=== PATIENT | male | born 1960 | race African-American/Black ===

== ENCOUNTER 2018-09-09 15:41 | Inpatient (IN) | payer OTHER ==
[~2018-09-09] VITALS: Ht 185.4 cm; Wt 49.9 kg
[~2018-09-09 15:41] MED LIST: ACET-3161 PO; AMIT10TA6 PO; ASPI-1393 PO; CHLORTHALIDONE PO; CYCL-108 PO; INDO50CA98 PO; LISI10TA5 PO; LISINOPRIL; LURA80TA PO; METF-414 PO; OMEP20CA5 PO; PARO30TA62 PO; PHEN100C4 PO; PROT40 PO; SERT50TA12 PO; TRAM50TA3 PO; TRAZ-213 PO
[2018-09-09] MEDS ORDERED: DEXTROSE 50% WATER 50ML SYRINGE IV ONE ×2 (16:03→16:15)
[2018-09-09] MEDS ORDERED: PIPERACILLIN/TAZ 3.375G PREMIX 50 ML IV ONE (16:15)
[2018-09-09] MEDS ORDERED: DEXTROSE 10% WATER 500 ML IV ONE (16:15)
[2018-09-09] MEDS ORDERED: SODIUM CHLORIDE 0.9% 1000ML BAG (SEPSIS BOLUS) IV ONE (16:15)
[2018-09-09] MEDS ORDERED: VANCOMYCIN 1 G PREMIX 200 ML IV ONE (16:15)
[2018-09-09 16:25] LABS: HEMATOCRIT. 32.8 % (42.0-52.0); HEMOGLOBIN. 11.1 g/dL (14.0-18.0); MEAN CORPUSCULAR HEMOGLOBIN 31.1 pg (28.0-32.0); MEAN CORPUSCULAR VOLUME 92.2 fL (80.0-94.0); MEAN PLATELET VOLUME 7.9 fl (7.4-10.4); PLATELET 453 x1000/uL (130-400); RED BLOOD CELL COUNT 3.56 mill/uL (4.7-6.1); RED CELL DISTRIBUTION WIDTH 17.9 % (11.6-14.6)
[2018-09-09 16:29] LABS: CHLORIDE 95 mEq/L (98-107)
[2018-09-09 16:29] LABS: BG CARBOXYHEMOGLOBIN 0.3 % (0.5-1.5); BG DEOXYHEMOGLOBIN 3.4 % (0.0-5.0); BG FRACTION INSPIRED OXYGEN 50; BG HCO3 ACT 27.3 mmol/L (22.0-26.0); BG METHEMOGLOBIN 0.4 % (0.0-1.5); BG OXYGEN SATURATION 96.6 % (92.0-98.5); BG OXYHEMOGLOBIN 95.9 % (94.0-97.0); BG PCO2 40.6 mmHg (35.0-45.0); BG PH 7.446 (7.350-7.450); BG PO2 91.9 mmHg (75.0-100.0); BG SAMPLE SITE RIGHT BRACHIAL; BG TOTAL HEMOGLOBIN 9.3 g/dL (12.0-18.0); BG VENT MODE MASK - TRACH
[2018-09-09 16:38] LABS: PROTHROMBIN TIME 98.1 sec (9.6-11.0)
[2018-09-09 16:59] LABS: INR 10.7
[2018-09-09] MEDS ORDERED: SODIUM BICARBONATE 8.4% 1 MEQ/ML 50ML SYR IV ONE (17:30)
[2018-09-09 18:42] LABS: CLARITY URINE CLEAR (CLEAR); COLOR URINE YELLOW (YELLOW); KETONES URINE NEGATIVE (NEGATIVE); LEUKOCYTE ESTERASE URINE NEGATIVE (NEGATIVE); NITRITE URINE NEGATIVE (NEGATIVE); OCCULT BLOOD URINE TRACE (NEGATIVE); PROTEIN URINE NEGATIVE (NEGATIVE); SPECIFIC GRAVITY URINE 1.018 (1.005-1.030)
[2018-09-09 18:47] LABS: PLATELET ESTIMATE NORMAL
[2018-09-09] MEDS ORDERED: ONDANSETRON HCL 4MG/2ML INJ IV PRN (22:15)
[2018-09-09] MEDS ORDERED: ACETAMINOPHEN 650MG/20.3ML UDC GT PRN (22:15)
[2018-09-09] MEDS ORDERED: DEXTROSE 50% WATER 50ML SYRINGE IV PRN (22:15)
[2018-09-09] MEDS ORDERED: CLONIDINE 0.1MG TABLET GT PRN (22:15)
[2018-09-09] MEDS ORDERED: IPRATROPIUM/ALBUTEROL 0.5-3(2.5)MG/3ML NEB INH PRN (22:15)
[2018-09-09] MEDS ORDERED: LORAZEPAM 2MG/ML CPJ IV PRN (22:15)
[2018-09-09] MEDS ORDERED: GUAIFENESIN 200MG/10ML SUGAR FREE UDC GT PRN (22:15)
[2018-09-09] MEDS ORDERED: DIPHENHYDRAMINE 50MG/ML VIAL IV PRN (22:15)
[2018-09-09] MEDS ORDERED: DEXT 5%/0.9% NACL 1,000 ML IV SCH (22:15)
[2018-09-09] MEDS ORDERED: PHYTONADIONE 10MG/ML AMP SUBCUT NR (23:45)
[2018-09-10] VITALS (13 sets, daily range): BP systolic 107–128; BP diastolic 71–90
[2018-09-10] MEDS: BLOOD SUGAR DIAGNOSTIC STRIP TEST SCH ×4 (00:22→17:33)
[2018-09-10] MEDS: HYDROCODONE/ACETAMINOPHEN 10/325MG TABLET GT PRN ×4 (01:04→21:22)
[2018-09-10] MEDS: IPRATROPIUM/ALBUTEROL 0.5-3(2.5)MG/3ML NEB HHN SCH ×5 (02:48→20:29)
[2018-09-10 08:12] LABS: CHLORIDE 99 mEq/L (98-107)
[2018-09-10 08:13] LABS: HEMATOCRIT. 23.1 % (42.0-52.0); HEMOGLOBIN. 8.1 g/dL (14.0-18.0); MEAN CORPUSCULAR HEMOGLOBIN 31.6 pg (28.0-32.0); MEAN CORPUSCULAR VOLUME 90.4 fL (80.0-94.0); PLATELET 295 x1000/uL (130-400); RED BLOOD CELL COUNT 2.56 mill/uL (4.7-6.1); RED CELL DISTRIBUTION WIDTH 17.7 % (11.6-14.6)
[2018-09-10] MEDS: PAROXETINE HCL 10MG TABLET GT SCH (09:42)
[2018-09-10] MEDS: LEVETIRACETAM 500MG/5ML CUP GT SCH ×2 (09:42→21:21)
[2018-09-10 11:13] LABS: PLATELET ESTIMATE NORMAL
[2018-09-10 12:30] LABS: PROTHROMBIN TIME > 100.0 sec (9.6-11.0)
[2018-09-10 12:32] LABS: INR > 10.0
[2018-09-10] MEDS ORDERED: PHYTONADIONE 10MG/ML AMP SUBCUT SCH (13:30)
[2018-09-10] MEDS: FAMOTIDINE 20MG TABLET GT SCH ×2 (14:09→21:22)
[2018-09-11] VITALS (10 sets, daily range): BP systolic 113–136; BP diastolic 70–90
[2018-09-11] MEDS: IPRATROPIUM/ALBUTEROL 0.5-3(2.5)MG/3ML NEB HHN SCH ×6 (00:12→20:23)
[2018-09-11] MEDS: BLOOD SUGAR DIAGNOSTIC STRIP TEST SCH ×5 (00:25→23:26)
[2018-09-11] MEDS: HYDROCODONE/ACETAMINOPHEN 10/325MG TABLET GT PRN ×4 (03:10→22:06)
[2018-09-11 05:21] LABS: HEMOGLOBIN. 7.2 g/dL (14.0-18.0); MEAN CORPUSCULAR HEMOGLOBIN 31.7 pg (28.0-32.0); MEAN CORPUSCULAR VOLUME 90.8 fL (80.0-94.0); MEAN PLATELET VOLUME 7.8 fl (7.4-10.4); PLATELET 243 x1000/uL (130-400); RED BLOOD CELL COUNT 2.27 mill/uL (4.7-6.1); RED CELL DISTRIBUTION WIDTH 17.6 % (11.6-14.6)
[2018-09-11 06:14] LABS: INR 6.6
[2018-09-11 06:42] LABS: HEMATOCRIT. 20.7 % (42.0-52.0)
[2018-09-11] MEDS: FAMOTIDINE 20MG TABLET GT SCH ×2 (08:21→20:19)
[2018-09-11] MEDS: LEVETIRACETAM 500MG/5ML CUP GT SCH ×2 (08:26→20:19)
[2018-09-11] MEDS: PAROXETINE HCL 10MG TABLET GT SCH (08:26)
[2018-09-11 08:52] LABS: CHLORIDE 104 mEq/L (98-107)
[2018-09-11] MEDS ORDERED: POTASSIUM CHLORIDE 20MEQ/PACKET GT NR (09:00)
[2018-09-11 09:11] LABS: PHOSPHORUS 0.5 mg/dL (2.5-4.9)
[2018-09-11] MEDS ORDERED: MAGNESIUM 2 G PREMIX 50 ML IV NR (10:30)
[2018-09-11 11:48] LABS: PLATELET ESTIMATE NORMAL
[2018-09-11] MEDS ORDERED: POTASSIUM PHOS,M-BASIC-D-BASIC 30 MMOL in DEXT 5% WATER 500 ML IV NR ×2 (15:30→17:00)
[2018-09-12] VITALS (12 sets, daily range): BP systolic 111–142; BP diastolic 30–92
[2018-09-12] MEDS: HYDROCODONE/ACETAMINOPHEN 10/325MG TABLET GT PRN ×3 (05:26→20:16)
[2018-09-12] MEDS: BLOOD SUGAR DIAGNOSTIC STRIP TEST SCH ×3 (06:00→17:34)
[2018-09-12 06:35] LABS: PROTHROMBIN TIME 20.3 sec (9.6-11.0)
[2018-09-12 06:43] LABS: HEMATOCRIT. 26.7 % (42.0-52.0); HEMOGLOBIN. 9.1 g/dL (14.0-18.0); MEAN CORPUSCULAR HEMOGLOBIN 31.2 pg (28.0-32.0); MEAN PLATELET VOLUME 8.3 fl (7.4-10.4); PLATELET 217 x1000/uL (130-400); RED BLOOD CELL COUNT 2.91 mill/uL (4.7-6.1)
[2018-09-12 07:16] LABS: CHLORIDE 100 mEq/L (98-107)
[2018-09-12] MEDS: LEVETIRACETAM 500MG/5ML CUP GT SCH (08:28)
[2018-09-12] MEDS: PAROXETINE HCL 10MG TABLET GT SCH (08:28)
[2018-09-12] MEDS: IPRATROPIUM/ALBUTEROL 0.5-3(2.5)MG/3ML NEB HHN SCH ×5 (08:40→20:09)
[2018-09-12] MEDS: FAMOTIDINE 20MG TABLET GT SCH ×2 (09:08→20:17)
[2018-09-12 10:32] LABS: PLATELET ESTIMATE NORMAL
[2018-09-12] MEDS ORDERED: POTASSIUM PHOS,M-BASIC-D-BASIC 30 MMOL in DEXT 5% WATER 500 ML IV NR (11:00)
[2018-09-12] MEDS ORDERED: PHENYTOIN SODIUM 500 MG in SODIUM CHLORIDE 0.9% 50 ML IV NR (18:00)
[2018-09-12] MEDS ORDERED: PHENYTOIN 100 MG/4 ML UDC NG SCH (22:00)
== END 2018-09-12 22:08 | disposition short-term general hospital (02) | DRG 637 ==
LOC: ER 15:41 → 5EST 18:41 → EDBEDREQTM 21:43 → EDBEDREQSVC 21:43 → ENRESERV 22:16
PROVIDERS: ADMIT Internal Medicine; ATTEND Internal Medicine
DX: E11.649 Type 2 diabetes mellitus with hypoglycemia without coma (principal); G93.41 Metabolic encephalopathy; E43 Unspecified severe protein-calorie malnutrition; E87.1 Hypo-osmolality and hyponatremia; C33 Malignant neoplasm of trachea; D68.9 Coagulation defect, unspecified; Z68.1 Body mass index [BMI] 19.9 or less, adult; N17.9 Acute kidney failure, unspecified; J44.9 Chronic obstructive pulmonary disease, unspecified; E83.39 Other disorders of phosphorus metabolism; E86.0 Dehydration; G40.909 Epilepsy, unspecified, not intractable, without status epilepticus; E87.8 Other disorders of electrolyte and fluid balance, not elsewhere classified; I10 Essential (primary) hypertension; Z85.818 Personal history of malignant neoplasm of other sites of lip, oral cavity, and pharynx; Z93.1 Gastrostomy status; Z93.0 Tracheostomy status; Z79.82 Long term (current) use of aspirin; Z79.84 Long term (current) use of oral hypoglycemic drugs; Z79.899 Other long term (current) drug therapy; Z91.14 Patient's other noncompliance with medication regimen; Z86.718 Personal history of other venous thrombosis and embolism; Z87.891 Personal history of nicotine dependence; Z99.81 Dependence on supplemental oxygen
CPT/HCPCS: 36415; 36600; 71045; 80048; 80185; 82270; 82375; 82805; 82962; 83036; 83605; 83735; 83880; 84100; 84145; 84484; 93005; 94640; 96365; 99291; J1165; J1200; J2405; J2543; J3370; J3430; J3475; J3490; J7030; J7060; J7620

== ENCOUNTER 2018-09-27 07:02 | Inpatient (IN) | payer OTHER ==
[~2018-09-27] VITALS: Ht 172.7 cm; Wt 41.7 kg
[2018-09-27] VITALS (44 sets, daily range): BP systolic 59–127; BP diastolic 24–75
[2018-09-27] MEDS ORDERED: SODIUM CHLORIDE 0.9% 1,000 ML IV ONE (07:21)
[2018-09-27 07:51] LABS: HEMATOCRIT. 24.9 % (42.0-52.0); HEMOGLOBIN. 8.3 g/dL (14.0-18.0); MEAN CORPUSCULAR HEMOGLOBIN 30.8 pg (28.0-32.0); MEAN CORPUSCULAR VOLUME 92.1 fL (80.0-94.0); MEAN PLATELET VOLUME 8.1 fl (7.4-10.4); PLATELET 168 x1000/uL (130-400); RED BLOOD CELL COUNT 2.71 mill/uL (4.7-6.1); RED CELL DISTRIBUTION WIDTH 16.9 % (11.6-14.6)
[2018-09-27 07:58] LABS: CHLORIDE 101 mEq/L (98-107)
[2018-09-27 08:25] LABS: PLATELET ESTIMATE NORMAL
[2018-09-27 08:35] LABS: BG CARBOXYHEMOGLOBIN 0.3 % (0.5-1.5); BG DEOXYHEMOGLOBIN 5.3 % (0.0-5.0); BG FRACTION INSPIRED OXYGEN 60; BG HCO3 ACT 24.8 mmol/L (22.0-26.0); BG METHEMOGLOBIN 0.3 % (0.0-1.5); BG OXYGEN SATURATION 94.7 % (92.0-98.5); BG OXYHEMOGLOBIN 94.1 % (94.0-97.0); BG PCO2 35.6 mmHg (35.0-45.0); BG PO2 74.9 mmHg (75.0-100.0); BG SAMPLE SITE RIGHT BRACHIAL; BG TOTAL HEMOGLOBIN 8.6 g/dL (12.0-18.0); BG VENT MODE MASK - AEROSOL
[2018-09-27] MEDS ORDERED: AZITHROMYCIN 500 MG in DEXT 5% WATER 250 ML IV ONE (09:15)
[2018-09-27] MEDS ORDERED: VANCOMYCIN 1 G PREMIX 200 ML IV SCH (09:15)
[2018-09-27] MEDS ORDERED: PIPERACILLIN/TAZ 3.375G PREMIX 50 ML IV ONE (09:15)
[2018-09-27] MEDS ORDERED: SODIUM CHLORIDE 0.9% 1,000 ML IV SCH (11:15)
[2018-09-27] MEDS ORDERED: ACETAMINOPHEN 325MG TABLET PO PRN (11:15)
[2018-09-27] MEDS ORDERED: ONDANSETRON HCL 4MG/2ML INJ IV PRN (11:15)
[2018-09-27] MEDS ORDERED: NOREPINEPHRINE 4MG/250ML PMX 250 ML IV NR (11:15)
[2018-09-27 12:11] LABS: HEPATITIS B SURFACE ANTIGEN NEGATIVE
[2018-09-27 12:41] LABS: HEPATITIS A AB IGM NEGATIVE (NEGATIVE)
[2018-09-27] MEDS ORDERED: NOREPINEPHRINE 4 MG in DEXTROSE 5% WATER 250 ML IV PRN (13:00)
[2018-09-27] MEDS: DEXT 5%/0.45% NACL 1000ML 1,000 ML IV SCH (15:00)
[2018-09-27] MEDS ORDERED: SODIUM CHLORIDE 0.9% 500 ML IV ONE ×2 (15:00)
[2018-09-27] MEDS: MIDODRINE HCL 5MG TABLET PO SCH ×2 (15:06→21:40)
[2018-09-27] MEDS: CEFEPIME 1,000 MG in DEXTROSE 5% WATER 50 ML IV SCH (15:07)
[2018-09-27] MEDS: NOREPINEPHRINE 8 MG in DEXT 5% WATER 242 ML IV PRN ×2 (15:08→22:55)
[2018-09-27] MEDS ORDERED: IPRATROPIUM/ALBUTEROL 0.5-3(2.5)MG/3ML NEB HHN PRN (15:30)
[2018-09-27] MEDS ORDERED: ENOXAPARIN 40MG/0.4ML SYR SUBCUT SCH (16:00)
[2018-09-27] MEDS: METRONIDAZOLE 500MG TABLET PO SCH (16:00)
[2018-09-27] MEDS: HYDROCODONE/ACETAMINOPHEN 10/325MG TABLET PO PRN (16:22)
[2018-09-27] MEDS: PHENYLEPHRINE 40 MG in DEXT 5% WATER 246 ML IV PRN ×2 (18:06→23:43)
[2018-09-27 18:52] LABS: CLARITY URINE CLEAR (CLEAR); COLOR URINE YELLOW (YELLOW); KETONES URINE NEGATIVE (NEGATIVE); LEUKOCYTE ESTERASE URINE NEGATIVE (NEGATIVE); NITRITE URINE NEGATIVE (NEGATIVE); OCCULT BLOOD URINE NEGATIVE (NEGATIVE); PH URINE 7.5 (4.5-8.0); PROTEIN URINE TRACE (NEGATIVE); SPECIFIC GRAVITY URINE 1.015 (1.005-1.030); UROBILINOGEN URINE 0.2 E.U./dL (0.2-1.0)
[2018-09-27 19:02] LABS: *AMPHETAMINES SCREEN URINE NEGATIVE (NEGATIVE); *BARBITURATES SCREEN URINE NEGATIVE (NEGATIVE); *BENZODIAZEPINES SCREEN URINE NEGATIVE (NEGATIVE); *COCAINE SCREEN URINE NEGATIVE (NEGATIVE); METHADONE URINE SCREEN NEGATIVE (NEGATIVE); OPIATES URINE SCREEN PRESUMTIVE POSITIVE (NEGATIVE)
[2018-09-27 19:03] LABS: CANNABINOID URINE SCREEN NEGATIVE (NEGATIVE); PHENCYCLIDINE URINE SCREEN NEGATIVE (NEGATIVE)
[2018-09-27] MEDS: VANCOMYCIN 500 MG PREMIX 100 ML IV SCH (19:51)
[2018-09-27] MEDS: IPRATROPIUM BROMIDE (0.02%) 0.5MG/2.5ML NEB HHN SCH (20:30)
[2018-09-27 21:30] LABS: INR 7.7; PROTHROMBIN TIME 72.3 sec (9.6-11.0)
[2018-09-27 21:33] LABS: PARTIAL THROMBOPLASTIN TIME 51.3 sec (23.4-31.0)
[2018-09-27] MEDS: DEXTROSE 50% WATER 50ML SYRINGE IV PRN ×2 (21:48→22:54)
[2018-09-28] VITALS (103 sets, daily range): BP systolic 49–160; BP diastolic 13–116
[2018-09-28] MEDS ORDERED: INSULIN LISPRO 100 UNITS/ML SUBCUT SCH
[2018-09-28] MEDS: METRONIDAZOLE 500MG TABLET PO SCH ×3 (00:06→16:00)
[2018-09-28] MEDS: BLOOD SUGAR DIAGNOSTIC STRIP TEST SCH ×4 (00:06→18:15)
[2018-09-28] MEDS: ACETYLCYSTEINE 100MG/ML 10% VIAL 4ML INH SCH ×3 (00:44→17:02)
[2018-09-28] MEDS: IPRATROPIUM BROMIDE (0.02%) 0.5MG/2.5ML NEB HHN SCH ×5 (00:45→17:02)
[2018-09-28] MEDS: DEXTROSE 50% WATER 50ML SYRINGE IV PRN (01:01)
[2018-09-28] MEDS: CEFEPIME 1,000 MG in DEXTROSE 5% WATER 50 ML IV SCH (02:22)
[2018-09-28] MEDS: HYDROCODONE/ACETAMINOPHEN 10/325MG TABLET PO PRN (02:42)
[2018-09-28] MEDS: DEXT 5%/0.45% NACL 1000ML 1,000 ML IV SCH ×2 (03:07→14:10)
[2018-09-28] MEDS: VANCOMYCIN 500 MG PREMIX 100 ML IV SCH (03:47)
[2018-09-28] MEDS: NOREPINEPHRINE 8 MG in DEXT 5% WATER 242 ML IV PRN ×3 (05:03→14:11)
[2018-09-28] MEDS: INSULIN LISPRO 100 UNITS/ML SUBCUT SCH ×4 (05:06→18:00)
[2018-09-28 05:44] LABS: BG BASE EXCESS -11.4 mmol/L (-2.0-2.0); BG CARBOXYHEMOGLOBIN 0.5 % (0.5-1.5); BG DEOXYHEMOGLOBIN 37.2 % (0.0-5.0); BG FRACTION INSPIRED OXYGEN 100; BG HCO3 ACT 17.8 mmol/L (22.0-26.0); BG METHEMOGLOBIN 0.1 % (0.0-1.5); BG OXYGEN SATURATION 62.6 % (92.0-98.5); BG OXYHEMOGLOBIN 62.2 % (94.0-97.0); BG PCO2 58.1 mmHg (35.0-45.0); BG PH 7.105 (7.350-7.450); BG PO2 39.8 mmHg (75.0-100.0); BG SAMPLE SITE LEFT FEMORAL; BG TOTAL HEMOGLOBIN 9.1 g/dL (12.0-18.0); BG VENT MODE AMBU BAG
[2018-09-28] MEDS: PHENYLEPHRINE 40 MG in DEXT 5% WATER 246 ML IV PRN ×3 (05:44→13:09)
[2018-09-28] MEDS ORDERED: NALOXONE HCL 0.4 MG/ML 1ML VIAL IV ONE (06:12)
[2018-09-28 06:18] LABS: CHLORIDE 99 mEq/L (98-107)
[2018-09-28 06:20] LABS: HEMATOCRIT. 24.6 % (42.0-52.0); HEMOGLOBIN. 8.1 g/dL (14.0-18.0); MEAN CORPUSCULAR HEMOGLOBIN 31.3 pg (28.0-32.0); MEAN CORPUSCULAR VOLUME 94.6 fL (80.0-94.0); MEAN PLATELET VOLUME 9.3 fl (7.4-10.4); PLATELET 83 x1000/uL (130-400); RED CELL DISTRIBUTION WIDTH 17.5 % (11.6-14.6)
[2018-09-28] MEDS: MIDODRINE HCL 5MG TABLET PO SCH ×2 (07:37→14:00)
[2018-09-28] MEDS ORDERED: SODIUM BICARBONATE 8.4% 1 MEQ/ML 50ML SYR IV NR ×2 (08:10→10:30)
[2018-09-28 08:13] LABS: BG BASE EXCESS -13.5 mmol/L (-2.0-2.0); BG CARBOXYHEMOGLOBIN 0.5 % (0.5-1.5); BG DEOXYHEMOGLOBIN 49.7 % (0.0-5.0); BG FRACTION INSPIRED OXYGEN 100; BG HCO3 ACT 17.4 mmol/L (22.0-26.0); BG METHEMOGLOBIN 0.3 % (0.0-1.5); BG OXYGEN SATURATION 49.9 % (92.0-98.5); BG OXYHEMOGLOBIN 49.5 % (94.0-97.0); BG PCO2 71.8 mmHg (35.0-45.0); BG PH 7.002 (7.350-7.450); BG PO2 35.2 mmHg (75.0-100.0); BG SAMPLE SITE RIGHT RADIAL; BG TIDAL VOLUME(mL) 500 mL; BG TOTAL HEMOGLOBIN 8.7 g/dL (12.0-18.0); BG VENT MODE VENT - A/C; BG VENT RATE 18 set
[2018-09-28] MEDS: VASOPRESSIN 10 UNIT in SODIUM CHLORIDE 0.9% 99.5 ML IV PRN ×2 (08:42→13:12)
[2018-09-28] MEDS ORDERED: DIATR MEGLU/DIATRIZOATE SOLN 30ML ONE ×2 (09:49→10:16)
[2018-09-28 10:15] LABS: BG BASE EXCESS -10.5 mmol/L (-2.0-2.0); BG CARBOXYHEMOGLOBIN 0.3 % (0.5-1.5); BG HCO3 ACT 17.6 mmol/L (22.0-26.0); BG METHEMOGLOBIN 0.2 % (0.0-1.5); BG OXYGEN SATURATION 86.9 % (92.0-98.5); BG OXYHEMOGLOBIN 86.5 % (94.0-97.0); BG PCO2 50.4 mmHg (35.0-45.0); BG PH 7.161 (7.350-7.450); BG PO2 58.6 mmHg (75.0-100.0); BG SAMPLE SITE RIGHT BRACHIAL; BG TIDAL VOLUME(mL) 550 mL; BG TOTAL HEMOGLOBIN 8.2 g/dL (12.0-18.0); BG VENT MODE VENT - A/C; BG VENT RATE 26 set
[2018-09-28] MEDS ORDERED: POTASSIUM CHLORIDE 20MEQ/PACKET PO NR (11:10)
[2018-09-28 13:41] LABS: BG BASE EXCESS -6.5 mmol/L (-2.0-2.0); BG CARBOXYHEMOGLOBIN 0.6 % (0.5-1.5); BG DEOXYHEMOGLOBIN 20.9 % (0.0-5.0); BG FRACTION INSPIRED OXYGEN 100; BG HCO3 ACT 21.2 mmol/L (22.0-26.0); BG METHEMOGLOBIN 0.1 % (0.0-1.5); BG OXYHEMOGLOBIN 78.4 % (94.0-97.0); BG PH 7.211 (7.350-7.450); BG PO2 45.9 mmHg (75.0-100.0); BG SAMPLE SITE RIGHT BRACHIAL; BG TIDAL VOLUME(mL) 550 mL; BG TOTAL HEMOGLOBIN 8.4 g/dL (12.0-18.0); BG VENT MODE VENT - A/C; BG VENT RATE 26 set
[2018-09-28] MEDS ORDERED: CEFEPIME 1,000 MG in DEXTROSE 5% WATER 50 ML IV SCH (14:00)
[2018-09-28] MEDS ORDERED: VANCOMYCIN 500 MG PREMIX 100 ML IV SCH ×2 (14:00→18:00)
[2018-09-28] MEDS ORDERED: MORPHINE SULFATE 4 MG/ML CPJ (NOT FOR IM USE) IV NR (14:15)
[2018-09-28] MEDS ORDERED: POTASSIUM CHLORIDE INJ 40 MEQ in DEXT 5% WATER 250 ML IV NR (14:30)
[2018-09-28] MEDS ORDERED: MORPHINE SULFATE 2 MG/ML CPJ (NOT FOR IM USE) IV NR (14:45)
[2018-09-28] MEDS ORDERED: PHENYLEPHRINE IV PRN (15:45)
[2018-09-28] MEDS ORDERED: WATER IV PRN (15:45)
[2018-09-28] MEDS ORDERED: DEXT 5% IV PRN (15:45)
[2018-09-28] MEDS ORDERED: PHENYLEPHRINE 80 MG in DEXT 5% WATER 492 ML IV PRN (16:00)
[2018-09-28 16:12] LABS: BG BASE EXCESS -6.3 mmol/L (-2.0-2.0); BG CARBOXYHEMOGLOBIN 0.3 % (0.5-1.5); BG DEOXYHEMOGLOBIN 15.2 % (0.0-5.0); BG HCO3 ACT 21.1 mmol/L (22.0-26.0); BG METHEMOGLOBIN 0.1 % (0.0-1.5); BG OXYGEN SATURATION 84.7 % (92.0-98.5); BG OXYHEMOGLOBIN 84.4 % (94.0-97.0); BG PCO2 52.2 mmHg (35.0-45.0); BG PH 7.224 (7.350-7.450); BG PO2 51.9 mmHg (75.0-100.0); BG SAMPLE SITE RIGHT FEMORAL; BG TIDAL VOLUME(mL) 550 mL; BG TOTAL HEMOGLOBIN 8.4 g/dL (12.0-18.0); BG VENT MODE VENT - A/C; BG VENT RATE 28 set
[2018-09-28 17:26] LABS: NUCLEATED RED BLOOD CELLS 2 /100 WBC; PLATELET ESTIMATE DECREASED
[2018-09-28] MEDS ORDERED: DEXT 10% WATER 1,000 ML IV ONE (17:41)
[2018-09-28] MEDS ORDERED: DEXTROSE 10% WATER 500 ML IV SCH (17:45)
[2018-09-28] MEDS ORDERED: DEXTROSE 50% WATER 50ML SYRINGE IV ONE ×2 (17:45→19:49)
[2018-09-28] MEDS ORDERED: METOCLOPRAMIDE HCL 10MG/2ML VIAL IV SCH (18:00)
[2018-09-28] MEDS ORDERED: EPINEPHRINE 1 MG in SODIUM CHLORIDE 0.9% 249 ML IV PRN (18:30)
[2018-09-28] MEDS ORDERED: EPINEPHRINE 0.1MG/ML (1:10,000) 10ML SYR ONE (19:49)
[2018-09-28] MEDS ORDERED: SODIUM BICARBONATE 8.4% MEQ/ML 50ML VIAL IV ONE (19:49)
[2018-09-28] MEDS ORDERED: CALCIUM CHLORIDE 1GM/10ML SYR IV ONE (19:49)
== END 2018-09-28 19:49 | disposition expired | DRG 871 ==
LOC: ER 07:02 → 5EST 11:14 → EDBEDREQ 11:18 → ENRESERV 13:10
PROVIDERS: ADMIT Internal Medicine; ATTEND Internal Medicine
PROC: 06HY33Z Insertion of Infusion Device into Lower Vein, Percutaneous Approach (ICD-10-PCS; principal; 2018-09-27)
PROC: B54BZZA Ultrasonography of Right Lower Extremity Veins, Guidance (ICD-10-PCS; 2018-09-27)
PROC: 5A1935Z Respiratory Ventilation, Less than 24 Consecutive Hours (ICD-10-PCS; 2018-09-28)
PROC: 5A12012 Performance of Cardiac Output, Single, Manual (ICD-10-PCS; 2018-09-28)
DX: A41.9 Sepsis, unspecified organism (principal); E43 Unspecified severe protein-calorie malnutrition; J18.9 Pneumonia, unspecified organism; J96.21 Acute and chronic respiratory failure with hypoxia; R65.21 Severe sepsis with septic shock; D61.818 Other pancytopenia; E87.2 Acidosis; E87.1 Hypo-osmolality and hyponatremia; I82.621 Acute embolism and thrombosis of deep veins of right upper extremity; K94.23 Gastrostomy malfunction; Z68.1 Body mass index [BMI] 19.9 or less, adult; C14.0 Malignant neoplasm of pharynx, unspecified; E11.9 Type 2 diabetes mellitus without complications; F31.9 Bipolar disorder, unspecified; F41.9 Anxiety disorder, unspecified; K21.9 Gastro-esophageal reflux disease without esophagitis; G40.909 Epilepsy, unspecified, not intractable, without status epilepticus; G89.29 Other chronic pain; R13.10 Dysphagia, unspecified; M54.5 Low back pain; J45.909 Unspecified asthma, uncomplicated; E87.6 Hypokalemia; N28.9 Disorder of kidney and ureter, unspecified; L89.159 Pressure ulcer of sacral region, unspecified stage; I46.9 Cardiac arrest, cause unspecified; K52.9 Noninfective gastroenteritis and colitis, unspecified; T45.515A Adverse effect of anticoagulants, initial encounter; Y83.3 Surgical operation with formation of external stoma as the cause of abnormal reaction of the patient, or of later complication, without mention of misadventure at the time of the procedure; Z87.01 Personal history of pneumonia (recurrent); Z93.0 Tracheostomy status; Z79.01 Long term (current) use of anticoagulants; Z79.899 Other long term (current) drug therapy; Z79.82 Long term (current) use of aspirin; Y92.89 Other specified places as the place of occurrence of the external cause; Z92.21 Personal history of antineoplastic chemotherapy; Z78.1 Physical restraint status
CPT/HCPCS: 36415; 36600; 71045; 74018; 80048; 80202; 80305; 81003; 82375; 82805; 82962; 83605; 83880; 84484; 86705; 86709; 86803; 87070; 87077; 87186; 87340; 93005; 93970; 93971; 96374; 99285; J0456; J0692; J1650; J2270; J2310; J2370; J2543; J3370; J3480; J3490; J7030; J7050; J7060; J7608; Q9963